=== PATIENT | male | born 2000 | race Caucasian/White ===

== ENCOUNTER 2023-11-11 05:35 | Emergency (ER) | payer OTHER ==
[~2023-11-11] VITALS: Ht 175.3 cm; Wt 111.1 kg
[2023-11-11 05:41] VITALS: BP 132/94; PULSE 75; RESP 18; TEMP 98.4; O2SAT 99
[2023-11-11 05:55] VITALS: O2SAT 99
--- NOTE | 2023-11-11 05:55 | NUR ---
23yo m bib self c.o headache, abd pain, nausea, vomiting x "a couple months". per pt, he has been seen at [facility] multiple times for this issue with no answer. pt states constipation with last bowel movement last night. states pain level 7/10. vss on bedside monitor. call light within reach. safety measures in place. nkda no med hx
--- NOTE | 2023-11-11 05:55 | NUR ---
ambulated to bed 4
[2023-11-11] MEDS ORDERED: MIRABULK PO (07:11)
--- NOTE | 2023-11-11 07:12 | NUR ---
came in today with malaise, c/o stomach pain past 2 months, constipation x 3 days, pt report yesterday vomit 7 times, pt report neausa on and off, pt reports "feeling of heat around stomach". pt report back of the head pain of 5/10 with "heat". pt reports "hearing stops on and off, feels blocked, sometimes there is ringing" pt reports he has been to [facility] and had stomach and head CT, and Chest Xray
[2023-11-11] MEDS ORDERED: MAG355OR2 PO (07:13)
[2023-11-11] MEDS ORDERED: ONDA-188 SL (07:13)
[2023-11-11 07:20] VITALS: BP 135/92; PULSE 82; RESP 18; TEMP 98.3; O2SAT 99
--- NOTE | 2023-11-11 07:20 | NUR ---
Patient discharged with v/s stable. Written and verbal after care instructions given and explained. Patient verbalized understanding. Ambulatory with steady gait. All questions addressed prior to discharge. Advised to follow up with PMD.
== END 2023-11-11 07:20 | disposition home or self-care (01) ==
LOC: MED 05:35
DX: K59.00 Constipation, unspecified (principal); K29.70 Gastritis, unspecified, without bleeding; Z79.899 Other long term (current) drug therapy
CPT/HCPCS: 99283